=== PATIENT | female | born 1990 | race Caucasian/White ===

== ENCOUNTER 2019-07-11 08:16 | Outpatient (CLI) | payer BC ==
--- NOTE | 2019-07-11 09:03 | ULT ---
Sonogram right upper quadrant HISTORY: Right upper quadrant pain. Increasing abnormal liver function tests. FINDINGS: Gallbladder is well distended without shadowing stone evident. Adherent to the posterior ga llbladder wall is a 0.5 cm nonshadowing echogenic focus. Common duct is 0.3 cm. Liver unremarkable without focal mass or intrahepatic biliary dilatation. No f ree fluid. IMPRESSION: No evidence of gallstones or biliary obstruction. Gallbladder wall polyps. No acute abnormalities are demonstrated.
== END 2019-07-11 08:17 | disposition home or self-care (01) ==
LOC: SCSULT 08:16
PROVIDERS: ATTEND Family Medicine
DX: R79.89 Other specified abnormal findings of blood chemistry (principal); K82.4 Cholesterolosis of gallbladder
CPT/HCPCS: 76705